=== PATIENT | female | born 1940 | race Caucasian/White ===

== ENCOUNTER 2022-04-15 10:47 | Observation (INO) | payer MEDICARE, OTHER ==
[~2022-04-15] VITALS: Ht 165.1 cm; Wt 53.4 kg
[~2022-04-15 10:47] MED LIST: AMLODIPINE BESYL5 MG PO; ASPIRIN EC81 MG PO; CATAPRES 0.1MG0.1 MG PO; CLONIDINE1 EACH TD; COZAAR100 MG PO; MULTIPLE VITAM1 EAC2 PO; NORVASC2.5 MG PO; OS-CAL 500+D31 EACH PO; TOPROL XL25 MG PO; VITAMIN B-121000 MCG PO; VITAMIN D21250 MCG PO; ZOCOR80 MG PO
[2022-04-15 11:56] LABS: HEMOGLOBIN 11.7 gm/dl (12.3-15.3); RED BLOOD COUNT 3.8 M/UL (4.00-5.10); WHITE BLOOD COUNT 6.7 K/UL (4.5-11.0)
[2022-04-15] MEDS ORDERED: CELECOXIB100 MG PO (16:05)
[2022-04-15] MEDS ORDERED: LEVOTHYROXINE25 MCG PO (16:07)
[2022-04-15] MEDS ORDERED: AMLODIPINE BES2.5 MG PO (16:07)
[2022-04-15] MEDS ORDERED: HYDROCHLOROTH12.5 MG PO (16:09)
[2022-04-15] MEDS ORDERED: MECLIZINE HCL25 MG PO (16:09)
[2022-04-15] MEDS ORDERED: CLONIDINE HCL0.1 MG PO (16:11)
[2022-04-15] MEDS ORDERED: WOMEN'S 50 PLU1 EACH PO (16:12)
[2022-04-16 06:44] LABS: HEMOGLOBIN 11.2 gm/dl (12.3-15.3); RED BLOOD COUNT 3.6 M/UL (4.00-5.10); WHITE BLOOD COUNT 7.9 K/UL (4.5-11.0)
[2022-04-16] MEDS ORDERED: MECLIZINE HCL25 MG PO (15:17)
== END 2022-04-16 17:39 | disposition home or self-care (01) ==
LOC: ER1 10:47 → CDU 13:43 → MED SURG 4 13:43
PROVIDERS: Emergency Medicine; Physician Assistant Medical; ADMIT Internal Medicine
DX: H81.10 Benign paroxysmal vertigo, unspecified ear (principal); I10 Essential (primary) hypertension; G89.29 Other chronic pain; M54.9 Dorsalgia, unspecified
CPT/HCPCS: ECHO; 70450; 70496; 70498; 70551; 71045; 80048; 80053; 80061; 82550; 82553; 83735; 84484; 85025; 85027; 93005; 93306; 96374; 97161; 99285; G0378; J2405; Q9967